=== PATIENT | female | born 1990 | race Caucasian/White ===

== ENCOUNTER 2022-12-05 16:24 | Outpatient (CLI) | payer OTHER | END 2022-12-05 17:01 | disposition home or self-care (01) | LOC: NST 16:24 | PROVIDERS: ATTEND Obstetrics & Gynecology | DX: Z34.83 Encounter for supervision of other normal pregnancy, third trimester (principal) ==

== ENCOUNTER 2022-12-12 19:10 | Outpatient (CLI) | payer OTHER | END 2022-12-12 21:08 | disposition home or self-care (01) | LOC: NST 19:10 | PROVIDERS: ATTEND Obstetrics & Gynecology Gynecology | DX: Z34.83 Encounter for supervision of other normal pregnancy, third trimester (principal) ==

== ENCOUNTER 2022-12-12 21:13 | Outpatient (CLI) | payer OTHER ==
[~2022-12-12] VITALS: Ht 167.6 cm; Wt 86.6 kg
== END 2022-12-12 22:17 | disposition left against medical advice (07) ==
LOC: LDR 21:13 → OBS/DEL 21:13 → LDR 22:17 → EDSTATUS 01-01 14:11
PROVIDERS: ATTEND Obstetrics & Gynecology Gynecology
DX: O16.3 Unspecified maternal hypertension, third trimester (principal); Z3A.38 38 weeks gestation of pregnancy

== ENCOUNTER 2022-12-15 11:13 | Outpatient (CLI) | payer OTHER | END 2022-12-15 12:28 | disposition home or self-care (01) | LOC: NST 11:13 | PROVIDERS: ATTEND Obstetrics & Gynecology | DX: Z34.83 Encounter for supervision of other normal pregnancy, third trimester (principal) ==

== ENCOUNTER 2022-12-15 13:45 | Inpatient (IN) | payer OTHER ==
[~2022-12-15] VITALS: Ht 167.6 cm; Wt 3.2 kg
[2022-12-19] MEDS ORDERED: PRENATABS RX T1 EACH PO (20:11)
[2022-12-19] MEDS ORDERED: GLUMETZA500 MG PO (20:11)
[2022-12-19] MEDS ORDERED: FE C TABLET1 EACH PO (20:12)
== END 2022-12-22 15:07 | disposition home or self-care (01) | DRG 786 ==
LOC: EDUNIT# 13:45 → LDR 12-19 19:22 → OB/GYN 12-20 13:45 → O/R 12-20 18:08 → OB/GYN 12-20 19:26
PROVIDERS: ADMIT Obstetrics & Gynecology; ATTEND Obstetrics & Gynecology
PROC: 4A1HXCZ Monitoring of Products of Conception, Cardiac Rate, External Approach (ICD-10-PCS; 2022-12-19)
PROC: 10D00Z1 Extraction of Products of Conception, Low, Open Approach (ICD-10-PCS; principal; 2022-12-20 19:15)
DX: O36.8130 Decreased fetal movements, third trimester, not applicable or unspecified (principal); O24.12 Pre-existing type 2 diabetes mellitus, in childbirth; O62.1 Secondary uterine inertia; O13.4 Gestational [pregnancy-induced] hypertension without significant proteinuria, complicating childbirth; Z3A.39 39 weeks gestation of pregnancy; Z37.0 Single live birth; Z79.4 Long term (current) use of insulin; Z20.822 Contact with and (suspected) exposure to COVID-19; E11.9 Type 2 diabetes mellitus without complications